=== PATIENT | female | born 1965 ===

== ENCOUNTER 2023-05-30 06:00 | Outpatient (CLI) | payer OTHER ==
[~2023-05-30] VITALS: Ht 170.2 cm; Wt 98.0 kg
[2023-05-30] MEDS ORDERED: COZAAR100 MG PO (08:05)
[2023-05-30] MEDS ORDERED: SYNTHROID100 MCG PO (08:05)
[2023-05-30 08:56] LABS: HEMATOCRIT 43.2 % (36.0-45.00); HEMOGLOBIN 14.4 g/dL (12.0-15.00); MEAN CELL VOLUME 87.2 fL (80.00-100.00); MEAN CORPUSCULAR HEMOGLOBIN 29.2 pg (27.00-32.0); MEAN CORPUSCULAR HGB CONC 33.5 g/dl (32.0-36.0); PLATELET COUNT 207 K/uL (150-450); RED BLOOD COUNT 4.95 M/uL (4.00-6.00); RED CELL DISTRIBUTION WIDTH 15.1 % (11.5-14.5)
[2023-05-30 08:56] LABS: PH,URINE 6.5 (5.0-8.0); URINE APPEARANCE Clear; URINE BILIRRUBIN Negative (NEGATIVE); URINE COLOR Yellow; URINE GLUCOSE Negative (NEGATIVE); URINE LEUKOCYTE Trace; URINE NITRATE Negative; URINE PROTEIN Negative (NEGATIVE); URINE UROBILINOGEN 0.2 E.U./dl
[2023-05-30 09:01] LABS: URINE RBC 4.4 uL (0.0-20.8); URINE WBC 56.8 uL (0.0-23.2)
[2023-05-30 09:10] LABS: URINE BACTERIA > 9821.5 uL (0.0-1933); URINE BLOOD TRACE
[2023-05-30 09:35] LABS: INR 0.98; PARTIAL THROMBOPLASTIN TIME 28.5 SECONDS (22.0-34.0); PROTHROMBIN TIME 10.3 SECONDS (9.0-11.5)
[2023-05-30 09:50] LABS: ALBUMIN 3.9 gm/dL (3.4-5.0); BILIRUBIN TOTAL 0.47 mg/dL (0.3-1.2); CALCIUM 9.5 mg/dL (8.5-10.1); CREATININE SERUM 0.83 mg/dL (0.55-1.02); GFR 70.86; POTASSIUM 4.15 mEq/L (3.5-5.1); TOTAL PROTEIN 7.9 gm/dL (6.4-8.2)
== END 2023-05-30 06:15 | disposition home or self-care (01) ==
LOC: LAB 06:00 → EDSTATUS 06-05 08:00 → SURG 06-05 08:00
PROVIDERS: ATTEND Orthopaedic Surgery
DX: M17.12 Unilateral primary osteoarthritis, left knee (principal); M85.662 Other cyst of bone, left lower leg